=== PATIENT | male | born 1970 | race Caucasian/White ===

== ENCOUNTER 2017-07-26 07:27 | Emergency (ER) | payer OTHER ==
[2017-07-26 07:36] VITALS: BP 124/82
--- NOTE | 2017-07-26 07:44 | UC ---
Upper Extremity HPI - HPI Summary HPI Summary: Fall from porch last night on to left wrist. Foosh injury. There is swelling and pain today. It is painful to move the wrist. - History of Current Complaint Chief Complaint: UCUpperExtremity Stated Complaint: LFT WRIST INJURY-SP FALL Time Seen by Provider: 07/26/17 07:40 Hx Obtained From: Patient Onset/Duration: Sudden Onset, Lasting Hours Severity Initially: Severe Severity Currently: Severe Location Of Pain: Is Discrete @ Character: Dull, Aching, Throbbing Aggravating Factor(s): Movement, Lifting, Flexion, Extension, Internal/External Rotation, Abduction Alleviating Factor(s): OTC Meds Associated Signs And Symptoms: Positive: Swelling. Negative: Redness, Numbness/ Tingling - Allergies/Home Medications Allergies/Adverse Reactions: Allergies Allergy/AdvReac Type Severity Reaction Status Date / Time No Known Allergies Allergy Verified 07/26/17 07:35 Home Medications: Home Medications NK [No Home Medications Reported] 07/26/17 [History Confirmed 07/26/17] PMH/Surg Hx/FS Hx/Imm Hx Previously Healthy: Yes - Surgical History Surgical History: None - Family History Known Family History: Positive: Other - No related wrist disease in the family. - Social History Occupation: Employed Full-time Alcohol Use: Occasionally Substance Use Type: None Smoking Status (MU): Never Smoked Tobacco Review of Systems Musculoskeletal: Arthralgia, Edema All Other Systems Reviewed And Are Negative: Yes Physical Exam Triage Information Reviewed: Yes Appearance: Well-Appearing, No Pain Distress, Well-Nourished Vital Signs: Initial Vital Signs Temp 98.2 F 07/26/17 07:30 Pulse 86 07/26/17 07:30 Resp 16 07/26/17 07:30 BP 124/82 07/26/17 07:30 Pulse Ox 100 07/26/17 07:30 Vital Signs Reviewed: Yes Eyes: Positive: Conjunctiva Clear ENT: Positive: Normal ENT inspection Neck: Positive: Supple, Nontender. Negative: Nuchal Rigidity Respiratory: Positive: No respiratory distress, No accessory muscle use. Negative: Respiratory distress Cardiovascular: Positive: Pulses Normal Abdomen Description: Negative: Distended, Guarding Musculoskeletal Exam: Other - Left wrist posterior swelling without redness. There is tenderness of the carpal bones without tenderness of the fingers, metacarpals and distal radius and ulna. Neurological: Positive: Alert, Muscle Tone Normal. Negative: Fatigued Psychological: Positive: Age Appropriate Behavior Skin: Negative: rashes Procedures - Splinting Hand-Made Type: orthoglass Splint: sugar-tong Pre-Proc Neuro Vasc Exam: normal Post-Proc Neuro Vasc Exam: normal Upper Extremity Course/Dx - Differential Dx/Diagnosis Differential Diagnosis/HQI/PQRI: Arthritis, Burn, Bursitis, Contusion, Fracture (Open), Fracture (Closed), Hematoma, Laceration, Localized Burn, Osteomyelitis, Septic Arthritis, Strain, Sprain Provider Diagnoses: distal radius fractures. Discharge - Discharge Plan Condition: Good Disposition: HOME Patient Education Materials: Wrist Fracture in Adults (ED) Referrals: Gagan Brush DO [Primary Care Provider] - Vinny Nguyen MD [Medical Doctor] -
--- NOTE | 2017-07-26 08:16 | RAD ---
HISTORY: Left wrist pain, injury COMPARISONS: None VIEWS: 3, Frontal, lateral, and oblique views of the left wrist FINDINGS: BONE DENSITY: Normal. BONES: There is a minimally displaced fracture of the dorsolateral radius, involving the radial styloid. JOINTS: There is no arthropathy. ALIGNMENT: There is no dislocation. SOFT TISSUES: There is associated soft tissue swelling OTHER FINDINGS: None. IMPRESSION: MINIMALLY DISPLACED FRACTURE OF THE DISTAL RADIUS.
== END 2017-07-26 09:11 | disposition home or self-care (01) ==
LOC: UCCORT 07:27
DX: S52.502A Unspecified fracture of the lower end of left radius, initial encounter for closed fracture (principal); W19.XXXA Unspecified fall, initial encounter; Y92.9 Unspecified place or not applicable
CPT/HCPCS: 25605; 99202; G0463

== ENCOUNTER 2017-07-26 12:27 | Observation (INO) | payer OTHER ==
--- NOTE | 2017-07-26 13:48 | ED ---
Upper Extremity Pain - HPI Summary HPI Summary: 46M presents with left radius fracture from ortho in [place]. He has radius fracture. was sent in by ortho. 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 no numbness or tingling. splint placed by urgent care. was walking on wet deck and slipped and arm went behind him. last ate last night. no medical conditions. - History of Current Complaint Chief Complaint: EDExtremityUpper Stated Complaint: LEFT ARM PAIN Time Seen by Provider: 07/26/17 13:39 - Allergies/Home Medications Allergies/Adverse Reactions: Allergies Allergy/AdvReac Type Severity Reaction Status Date / Time No Known Allergies Allergy Verified 07/26/17 07:35 PMH/Surg Hx/FS Hx/Imm Hx Endocrine/Hematology History: Denies: Hx Anticoagulant Therapy Cardiovascular History: Denies: Hx Myocardial Infarction - Immunization History Date of Tetanus Vaccine: unknown Date of Influenza Vaccine: 05/2017 Infectious Disease History: No Infectious Disease History: Denies: Traveled Outside the [place] in Last 30 Days - Family History Known Family History: Positive: Other - No related wrist disease in the family. - Social History Alcohol Use: Occasionally Substance Use Type: Reports: None Smoking Status (MU): Never Smoked Tobacco Review of Systems Negative: Fever Negative: Chest Pain Negative: Shortness Of Breath Positive: Myalgia - left wrist pain All Other Systems Reviewed And Are Negative: Yes Physical Exam Triage Information Reviewed: Yes Vital Signs On Initial Exam: Initial Vitals Temp Pulse Resp BP Pulse Ox 97.9 F 93 18 179/117 97 07/26/17 12:31 07/26/17 12:31 07/26/17 12:31 07/26/17 12:31 07/26/17 12:31 Vital Signs Reviewed: Yes Appearance: Positive: Well-Appearing Skin: Positive: Warm, Dry Head/Face: Positive: Normal Head/Face Inspection Eyes: Positive: Normal, Conjunctiva Clear Respiratory/Lung Sounds: Positive: Clear to Auscultation, Breath Sounds Present Cardiovascular: Positive: Normal, RRR Musculoskeletal: Positive: Other - splint in place on left forearm, able to move finger, sensation grossly intact, capillary refill<2 secs Neurological: Positive: Normal Psychiatric: Positive: Normal - Tranquillity Coma Scale Coma Scale Total: 15 Diagnostics - Vital Signs Vital Signs Temp Pulse Resp BP Pulse Ox 07/26/17 12:31 97.9 F 93 18 179/117 97 - Laboratory Result Diagrams: 07/26/17 20:50 07/26/17 20:50 Lab Statement: Any lab studies that have been ordered have been reviewed, and results considered in the medical decision making process. - EKG No standard instances Cardiac Rate: NL EKG Rhythm: Sinus Rhythm EKG Interpretation: sinus rhythm Course/Dx - Course Course Of Treatment: 46M presents with left radius fracture from ortho in [place]. He has radius fracture. was sent in by ortho. 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 no numbness or tingling. splint placed by urgent care. was walking on wet deck and slipped and arm went behind him. last ate last night. no medical conditions. on exam neurovascular intact. splint in place left arm. dr gruber will come in see in ED. dr gruber attempted to reduce wrist. dr gruber will admit for surgery in morning. - Diagnoses Differential Diagnosis/HQI/PQRI: Positive: Fracture (Closed), Strain, Sprain Provider Diagnoses: Left wrist fracture - Physician Notifications Discussed Care of Patient With: dr gruber Time Discussed With Above Provider: 15:10 - will see in ED after or case Discharge - Discharge Plan Condition: Stable Disposition: ADMITTED TO [facility]
[2017-07-26] MEDS ORDERED: oxyCODONE/Acetamin 5/325 MG* TAB PO ONE (17:13)
[2017-07-26] MEDS ORDERED: Ibuprofen TAB* 400 MG PO ONE (17:13)
[2017-07-26] MEDS ORDERED: Lidocaine 2% EPI 1:200000 MPF* 20 ML VIAL ONE (18:10)
--- NOTE | 2017-07-26 19:32 | RAD ---
INDICATION: Postreduction COMPARISON: Left wrist same date TECHNIQUE: AP, lateral, and oblique views were obtained. FINDINGS: There is anterior dislocation of the lunate, unchanged. There is fracture the radial styloid and there may be a small fracture fragment are composed between the triquetral bone and the lunate. The distal carpal row appears intact. There is diffuse soft tissue swelling. IMPRESSION: CYST IN THE LOWER DISLOCATION OF THE LUNATE. FRACTURES OF THE RADIAL STYLOID AND POSSIBLE TRIQUETRAL FRACTURE. CONSIDER CT IMAGING INDICATED.
--- NOTE | 2017-07-26 19:52 | RAD ---
INDICATION: Postreduction x2 COMPARISON: Left wrist same date TECHNIQUE: AP, lateral, and oblique views were obtained. FINDINGS: There is interval closed closed reduction of the lunate. Radial styloid and probable triquetral fractures are again noted. No additional findings. IMPRESSION: SATISFACTORY REDUCTION.
[2017-07-26] MEDS ORDERED: Morphine INJ* 2 MG/ML 1 ML SYRINGE (TWO MG - NEW SYRINGE VERSION) IV PRN (20:11)
[2017-07-26] MEDS ORDERED: Ondansetron TAB* 4 MG PO PRN (20:11)
[2017-07-26] MEDS ORDERED: oxyCODONE/Acetamin 5/325 MG* TAB PO PRN (20:11)
[2017-07-26] MEDS ORDERED: diPHENhydraMINE PO* 25 MG PO PRN (20:11)
[2017-07-26] MEDS ORDERED: Acetaminophen TAB* 325 MG PO PRN (20:11)
[2017-07-26 20:56] LABS: Hematocrit 48 % (42-52); Hemoglobin 16.2 g/dl (14.0-18.0); Mean Corpuscular HGB Conc 34 g/dl (31-36); Mean Corpuscular Hemoglobin 31 pg (27-31); Mean Corpuscular Volume 91 fL (80-94); Mean Platelet Volume 9 um3 (7.4-10.4); Platelet Count 221 10^3/ul (150-450); Red Blood Count 5.26 10^6/ul (4.0-5.4); Red Cell Distribution Width 14 % (10.5-15); White Blood Count 11.8 10^3/ul (3.5-10.8)
[2017-07-26 21:05] LABS: INR 1.04 (0.77-1.02)
[2017-07-26 21:41] LABS: EGFR Non-African American 88.3 (>60)
--- NOTE | 2017-07-27 02:44 | HP ---
HISTORY AND PHYSICAL: DATE OF ADMISSION: 07/26/17 REASON FOR ADMISSION: Left wrist perilunate dislocation. 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 The patient states that he slipped at home and fell on his wrist. He assumed it was just a sprain. He wrapped it with an Hira bandage overnight. He awoke this morning in significant pain and realized that he should seek medical care. He saw Dr. Vinny Nguyen at his clinic at [place]. Radiographs were obtained and demonstrated a left wrist perilunate dislocation. Dr. Nguyen placed the patient in a volar splint. Reduction was not attempted in the office. Dr. Nguyen contacted Dr. Graham, my partner, by telephone and gave him some notice of the injury. Dr. Nguyen sent the patient to the Emergency Department at [facility]. The patient presented to the emergency department in some discomfort. The patient denied any other injuries or pain associated with the fall. PAST MEDICAL HISTORY: None. PAST SURGICAL HISTORY: None. MEDICATIONS: None. ALLERGIES: No known drug allergies. REVIEW OF SYSTEMS: The patient denies any headache, nausea or vomiting, chest pain, shortness of breath, heart palpitations. No nausea, vomiting, abdominal pain, diarrhea. The patient describes transient numbness and tingling when he walked around to go to the bathroom while in the emergency department. Otherwise, no numbness and tingling whatsoever. No other joint pain. No other musculoskeletal pain about his body. PHYSICAL EXAMINATION GENERAL: In no acute distress. Alert and oriented, appropriate mood and affect. Appropriate dress and hygiene, non-antalgic gait. Well coordinated bilateral upper and lower extremities. VITAL SIGNS: Obtained at 12:31 p.m. on 07/26/17 in the emergency department revealed temperature 97.9 degrees Fahrenheit, heart rate 93, blood pressure 179/ 117, respiratory 18, O2 sat 97% on room air. EXTREMITIES: Left upper extremity was removed from the volar splint. The patient had soft tissue swelling about the left wrist. No ecchymosis. No open skin. The patient was neurovascular intact distally with motor function in PIN and ulnar nerves and sensation intact in the superficial radial, median and ulnar nerve distributions. Tenderness to palpation of the wrist volarly and dorsally. LABORATORY VALUES: None obtained. IMAGING: I reviewed radiographs, 3 views of the left wrist obtained earlier in the day. These showed a dorsal left wrist perilunate dislocation. It involves the lesser arc, mostly ligamentous although there was clearly a radial styloid fracture. There was also a question of a rosio fracture of the dorsal aspect of the styloid and of the trapezium bones. ASSESSMENT: Left wrist dorsal perilunate dislocation. PLAN: 1. I discussed with the patient the treatment he needs immediately and also in the short term. Immediately, the patient needed his wrist relocated. This is to reduce soft tissue swelling and to reduce harm to the articular cartilage or the carpal bones. In the short term, the patient will need pinning of his carpal bones and repair of intercarpal ligaments. 2. I discussed relocating the wrist in the emergency department or in the operating room. We decided to proceed with a relocation in the emergency department. 3. Procedure: I performed a relocation of the patient's left wrist dislocation in the emergency department. Verbal consent, sterile technique, tolerated well. I injected 10 cc of 2% lidocaine into the dorsal aspect of the patient's wrist. Difficult to tell whether I was in the radiocarpal or intercarpal joints given the significance of his swelling and the tenderness with determining landmarks. I believe I was in the radiocarpal joint. I then waited 15 minutes. I placed the patient in finger traps. I then performed a reduction maneuver. I sent the patient to get x-rays. These x-rays show that the patient was still dislocated. I therefore performed the relocation maneuver again. I sent the patient back for x-rays. These x-rays show the patient's wrist to be located. The dorsal perilunate dislocation had been resolved. The wrist was well located. Fracture is visible of the radiostyloid tip and the dorsal aspect of the radius, dorsal rim and possibly of triquetrum. 4. I admitted the patient overnight for pain control. The patient was in significant pain and so I thought IV pain control would be required. Nursing will do standard bed checks on the patient. 5. I placed the patient back into a volar wrist splint. 6. The patient will be n.p.o. after midnight with IV fluids running. 7. I will get an EKG and some basic labs on the patient for preoperative optimization. 8. The patient will go to the operating room tomorrow with Dr. Graham for an open reduction ligament repair and percutaneous pinning of the perilunate fracture dislocation. More accurately perilunate dislocation. [id number]/[facility] #: [id number] [place]
[2017-07-27] MEDS: NS 0.9% 1000 ML* 1,000 ML IV SCH (07:56)
[2017-07-27] MEDS: hydrALAZINE IV* 20 MG/ML VIAL IV SLOW PU PRN ×3 (12:57→23:56)
--- NOTE | 2017-07-27 13:21 | PN ---
Progress Note - Progress Note Date of Service: 07/27/17 SOAP: Subjective: []Patient seen at bedside. His pain is well controlled with a max of 3/10 pain. His blood pressure has been elevated since admission, patient states he has no history of hypertension but does have occasional high readings when at PCP that decrease by the end of the visit. He denies chest pain, irregular heartbeats, shortness of breath, dizziness or nausea. Objective: [] Vital Signs Temp 97.5 F 07/27/17 12:05 Pulse 65 07/27/17 11:17 Resp 18 07/27/17 12:18 BP 179/106 07/27/17 12:48 Pulse Ox 100 07/27/17 11:17 Intake & Output 07/26/17 07/27/17 07/27/17 18:59 06:59 18:59 Intake Total 686 Balance 686 Weight 300 lb 309 lb Intake: IV Fluids 686 NS (0.9%) 686 Oral 0 Other: Estimated Void Medium Medium Other Amount Description 0 # Voids 2 Laboratory Last Values WBC 11.8 10^3/ul (3.5-10.8) H 07/26/17 20:50 RBC 5.26 10^6/ul (4.0-5.4) 07/26/17 20:50 Hgb 16.2 g/dl (14.0-18.0) 07/26/17 20:50 Hct 48 % (42-52) 07/26/17 20:50 MCV 91 fL (80-94) 07/26/17 20:50 MCH 31 pg (27-31) 07/26/17 20:50 MCHC 34 g/dl (31-36) 07/26/17 20:50 RDW 14 % (10.5-15) 07/26/17 20:50 Plt Count 221 10^3/ul (150-450) 07/26/17 20:50 MPV 9 um3 (7.4-10.4) 07/26/17 20:50 INR (Anticoag Therapy) 1.04 (0.77-1.02) H 07/26/17 20:50 Sodium 137 mmol/L (133-145) 07/26/17 20:50 Potassium 4.3 mmol/L (3.5-5.0) 07/26/17 20:50 Chloride 103 mmol/L (101-111) 07/26/17 20:50 Carbon Dioxide 25 mmol/L (22-32) 07/26/17 20:50 Anion Gap 9 mmol/L (2-11) 07/26/17 20:50 BUN 18 mg/dL (6-24) 07/26/17 20:50 Creatinine 0.93 mg/dL (0.67-1.17) 07/26/17 20:50 Est GFR ( Amer) 113.5 (>60) 07/26/17 20:50 Est GFR (Non-Af Amer) 88.3 (>60) 07/26/17 20:50 BUN/Creatinine Ratio 19.4 (8-20) 07/26/17 20:50 Glucose 118 mg/dL (70-100) H 07/26/17 20:50 Calcium 9.9 mg/dL (8.6-10.3) 07/26/17 20:50 General: Well appearing, NAD. Calm and cooperative. Patient does not appear to be anxious or in pain. LUE: Splint intact. Sensation intact of all 5 digits, flexion and extension intact of all 5 digits, brisk capillary refill distally. Assessment: []Left wrist dorsal perilunate dislocation Plan: []Pain control did not reduce BP adequately. Hospitalist consulted to oversee blood pressure control. Hydralazine ordered for perioperative BP control. Patient to be discharged on HCTZ 12.5 mg qd. NPO ORIF ligament repair and percutaneous pinning today
[2017-07-27] MEDS ORDERED: Metoprolol Tartrate IV* 1 MG/ML 5 ML VIAL ONE (14:16)
[2017-07-27] MEDS: Metoprolol Tartrate IV* 1 MG/ML 5 ML VIAL IV PRN (14:20)
[2017-07-27] MEDS ORDERED: hydrALAZINE IV* 20 MG/ML VIAL IV SLOW PU ONE (14:21)
--- NOTE | 2017-07-27 16:21 | CONS ---
[facility] MEDICINE CONSULTATION REPORT: DATE OF CONSULT: 07/27/17 PROVIDER: Valerie Flores NP ATTENDING PHYSICIAN: Dr. Costa Berg. CONSULTING PHYSICIAN: Dr. Shantel Pink (dictation is provided by Valerie Flores NP). REASON FOR CONSULT: Hypertension. HISTORY OF PRESENT ILLNESS: Mr. Fallon is a 46-year-old male that presented to the emergency room on 07/26/17 after he slipped and fell injuring his left wrist on 07/25/17. The patient states that he slipped on his porch at home. He assumed that he just sprained his wrist, so he wrapped it and then the next morning, his wrist had increased pain. So, he went to seek medical care. He saw Dr. Vinny Nguyen at the clinic in [place]. X-rays were obtained and demonstrated left wrist perilunate dislocation. He was then sent to the emergency room at [facility] for further management. The patient is currently sitting on the chair in his room. He has no complaints. He denies any recent illnesses. Denies nausea, vomiting, or diarrhea. Denies abdominal pain. Denies fever or chills. Denies any recent upper respiratory cough, cold , or congestion. He denies any history of coronary artery disease, COPD, asthma , or recent lung infections. He is scheduled for surgery on his left wrist today. We were asked to consult on this patient due to his high blood pressures overnight. PAST MEDICAL HISTORY: He has no past medical history. PAST SURGICAL HISTORY: He has no past surgical history. MEDICATIONS: No medications as an outpatient. ALLERGIES: No known allergies. FAMILY HISTORY: No history of coronary artery disease in the family. Diabetes , mother has diabetes diagnosed at age 40. Cancer, mother had breast cancer. SOCIAL HISTORY: The patient denies the use of tobacco or drug use. He does occasionally drink alcohol. 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 He is . His surrogate decision maker in the event he is unable to make his own decisions is his , Bisi Fallon. Her phone number is [phone]. REVIEW OF SYSTEMS: General: No fever, chills, or unintended weight loss. He does report that he has had some weight gain over the past year. Cardiac: No chest pain or edema. Respiratory: No cough or congestion. Denies any shortness of breath. GI: Denies nausea, vomiting, or diarrhea. Denies abdominal pain. : Denies gross hematuria. Denies dysuria. Neuro: No focal weakness or sensory loss. No visual complaints. ENT: No dysphagia. Musculoskeletal: No arthralgias or myalgias. Skin: No rashes or lesions. Psych: No depression or anxiety. PHYSICAL EXAM: Vital Signs: Temperature is 97.5, blood pressure was 159/93, heart rate is 65, respirations are 16, O2 is 100% on room air. He has had systolic blood pressures between 161-179/100-127. General: Mr. Fallon is a 46- year-old male. He is sitting up in a chair. He is in no acute distress. Neuro : He is alert and oriented x3. He is able to move all extremities. He does complain of mild pain to his left wrist, rated at 1. EOMs are intact. Heart: S1, S2. There are no murmurs, rubs, or gallops. Lungs are clear to auscultation bilaterally. No accessory muscle use. Abdomen is soft and nontender. Bowel sounds are active x4. Extremities: No cyanosis or clubbing. There is no edema. Skin is intact. He does have a splint to his left wrist. He is able to move all of his fingers. DIAGNOSTIC STUDIES/LAB DATA: Preoperatively from 07/26/17, WBC is 11.8, hemoglobin 16.2, hematocrit 48, platelet count is 221. INR is 1.04. Sodium 137 , potassium 4.3, chloride 103, carbon dioxide 25, BUN 18, creatinine 0.93, glucose 118, and calcium is 9.9. EKG shows a sinus rhythm. There is no ST or T wave changes. Left wrist x-ray, Radiology impression: Cyst in the lower dislocation of the lunate, fracture of the radial styloid and possible triquetral fracture. Consider CT imaging if indicated. Second wrist x-ray from 07/26/17 states satisfactory reduction. In this x-ray, an interval closed reduction of the lunate, radial styloid and palpable triquetral fractures are again noted, no additional findings. IMPRESSION AND PLAN: Mr. Fallon is a 46-year-old male that presented with no significant past medical history, who presented to the emergency room yesterday with a left wrist dislocation and fracture, who was scheduled for surgery today. In the immediate preoperative period, he had some hypertension overnight that was uncontrolled with systolic blood pressure between 159 and 179 over 93 to 127. We were asked to consult for management of his hypertension. Our recommendations are as follows: 1. Left wrist fracture. Management will be per Orthopedic Surgery. 2. Hypertension. I will order a p.r.n. dose of hydralazine 5 mg IV q.6 hours as needed for systolic blood pressure greater than 170. I would also recommend that he be started postoperatively on a low dose blood pressure medication. I would recommend hydrochlorothiazide 12.5 mg p.o. dailyat discharge if his blood pressure remains high. From a medical standpoint, he is okay for surgery. 3. DVT prophylaxis, per Orthopedic Surgery. 4. Full code. 5. Diet. Postoperatively, he can be placed on a regular diet. TIME SPENT: Approximately 45 minutes was spent on this consultation of this patient, more than half the time was spent with the patient and his at the bedside, reviewing the events leading to his hospitalization, performing physical exam, and reviewing my plan of care. I have reviewed my plan of care with, Dr. Shantel Pink, who is in agreement with my plan of care. VALERIE FLORES, [place] [id number]/[facility] #: [id number] [place]
[2017-07-27] MEDS ORDERED: Buffered Lidocaine 0.9% SYRIN* 5 ML/SYR SYRINGE ONE (16:39)
[2017-07-27] MEDS ORDERED: ceFAZolin 2 GM PREMIX (*) 2 GM/50 ML BAG IVPB ONE (19:04)
[2017-07-27] MEDS ORDERED: ceFAZolin 1 GM in Dextrose (*) 1 GM/50 ML BAG IVPB ONE (19:04)
[2017-07-27] MEDS ORDERED: Midazolam* 1 MG/ML 10 ML VIAL (10 MG) ONE (19:44)
[2017-07-27] MEDS ORDERED: Ondansetron INJ* 2 MG/ML VIAL ONE (19:44)
[2017-07-27] MEDS ORDERED: KETAMINE HCL* 50 MG/ML 10 ML VIAL ONE (19:44)
[2017-07-27] MEDS ORDERED: fentaNYL* 50 MCG/ML 5 ML VIAL (250 MCG VIAL) ONE (19:44)
[2017-07-27] MEDS ORDERED: Lidocaine 2% PF * 5 ML VIAL ONE (19:44)
[2017-07-27] MEDS ORDERED: Dexamethasone IV* 4 MG/ML 1 ML (4 MG) ONE (19:44)
[2017-07-27] MEDS ORDERED: Propofol* 10 MG/ML 20 ML BTL IV PUSH ONE (19:44)
[2017-07-27] MEDS ORDERED: Ketorolac INJ* 30 MG/ML 1 ML VIAL ONE (19:44)
--- NOTE | 2017-07-27 20:00 | PN ---
Progress Note - Progress Note Date of Service: 07/27/17 Note: I have met with Kieran and have reviewed his case. We will plan on left perilunate dislocation repair and possible carpal tunnel release. He understands the postoperative course and prolonged immobilization and need for subsequent pin removal. He understands the wrist will likely be stiff.
[2017-07-27] MEDS ORDERED: fentaNYL* 50 MCG/ML 2 ML VIAL (100 MCG VIAL) ONE ×2 (21:41→22:53)
[2017-07-27] MEDS ORDERED: fentaNYL* 50 MCG/ML 2 ML VIAL (100 MCG VIAL) IV PRN (21:58)
[2017-07-27] MEDS ORDERED: Ondansetron INJ* 2 MG/ML VIAL IV PRN (21:58)
[2017-07-27] MEDS ORDERED: HYDROmorphone INJ* 1 MG/ML CARPUJECT SYRINGE IV PRN (21:58)
[2017-07-27] MEDS ORDERED: HYDROmorphone INJ* 1 MG/ML CARPUJECT SYRINGE ONE (22:12)
[2017-07-27] MEDS ORDERED: Bupivacaine 0.5% SDV PF* 10-30ML VIAL ONE (22:35)
[2017-07-27] MEDS ORDERED: hydrALAZINE IV* 20 MG/ML VIAL ONE (23:53)
[2017-07-28] MEDS ORDERED: Metoprolol Tartrate IV* 1 MG/ML 5 ML VIAL ONE (00:28)
[2017-07-28] MEDS: Metoprolol Tartrate IV* 1 MG/ML 5 ML VIAL IV PRN (00:29)
[2017-07-28] MEDS ORDERED: Labetalol IV* 5 MG/ML 20 ML VIAL ONE (01:04)
[2017-07-28] MEDS: NS 0.9% 1000 ML* 1,000 ML IV SCH (02:37)
[2017-07-28] MEDS ORDERED: ceFAZolin 1 GM VIAL(*) 1 GM in D5W 50 ML BAG* 50 ML IVPB SCH (04:00)
--- NOTE | 2017-07-28 07:48 | RAD ---
INDICATION: Left wrist fracture, fall COMPARISONS: July 27, 2017 TECHNIQUE: Fluoroscopy was provided for a surgical procedure. Total fluoroscopy time is: 46.2 FINDINGS: Spot images demonstrate previous fixation of the proximal and distal carpal row with post surgical change to the lunate.. IMPRESSION: FLUOROSCOPY WAS PROVIDED FOR A SURGICAL PROCEDURE CPT II Codes: 6045F
[2017-07-28 08:18] VITALS: BP 137/73
[2017-07-28] MEDS ORDERED: Hydrochlorothiazide TAB* 25 MG PO SCH (09:00)
--- NOTE | 2017-07-28 10:18 | PN ---
Progress Note - Progress Note Date of Service: 07/28/17 SOAP: Subjective: 46 y/o male s/p L wrist perilunate dislocation s/p reduction, pinning [address] Graham. Patient overall feeling well, pain controlled with Percocet overnight. no questions/ concerns. at bedside. VSS afebrile Objective: General- Well appearing, NAD, ao MSK- SPlint intact, no drainage noted, SITLT L fingers, cap refill <2seconds, mild edema L fingers. Vital Signs Temp 97.9 F 07/28/17 08:08 Pulse 91 07/28/17 08:08 Resp 18 07/28/17 08:08 BP 137/73 07/28/17 08:08 Pulse Ox 96 07/28/17 08:08 Intake & Output 07/27/17 07/28/17 07/28/17 18:59 06:59 18:59 Intake Total 948 2150 Balance 948 2150 Intake: IV Fluids 948 2150 LR 2000 NS (0.9%) 948 NS 50ML, Cefazolin 1G 50 NS 50ML, Cefazolin 2G 50 Oral 0 Other: Estimated Void Medium Large # Voids 4 1 Assessment: Stable 46 y/o male s/p L wrist perilunate dislocation s/p reduction, pinning by DR. Graham. Plan: - D/C to home today - Follow up [facility] DR. graham 08/08 or 08/15 in [place] - Keep splint elevated, dry - Percocet for pain control - BP normalized without medication in past 12 hours, likely due to pain. Follow up with PCP. Active Medications Generic Name Dose Route Start Last Admin Trade Name Freq PRN Reason Stop Dose Admin Acetaminophen 325 mg 07/26/17 20:11 Tylenol Tab* PO Q6H PRN PAIN OR TEMPERATURE Diphenhydramine HCl 25 mg 07/26/17 20:11 Benadryl Po* PO Q6H PRN ITCHING Hydralazine HCl 5 mg 07/27/17 12:37 07/27/17 23:56 Apresoline Iv* IV SLOW PU 5 mg Q6H PRN Administration SYSTOLIC BP GREATER THAN: Hydrochlorothiazide 12.5 mg 07/28/17 09:00 07/28/17 10:08 Hydrodiuril Tab* PO Not Given DAILY BRYAN Sodium Chloride 1,000 mls @ 100 mls/hr 07/26/17 20:15 07/28/17 02:37 Ns 0.9% 1000 Ml* IV 100 mls/hr PER RATE BRYAN Administration Cefazolin Sodium 1 gm/ 50 mls @ 200 mls/hr 07/28/17 04:00 07/28/17 04:19 Dextrose IVPB 07/28/17 20:14 200 mls/hr Q8H BRYAN Administration Metoprolol Tartrate 5 mg 07/27/17 14:09 07/28/17 00:29 Lopressor Iv* IV 5 mg Q4H PRN Administration BLOOD PRESSURE Morphine Sulfate 2 mg 07/26/17 20:11 Morphine Inj (Syringe)* IV Q2H PRN PAIN - MODERATE Ondansetron HCl 4 mg 07/26/17 20:11 Zofran Tab* PO Q6H PRN NAUSEA Oxycodone/Acetaminophen 1 tab 07/26/17 20:11 07/27/17 09:04 Percocet 5/325 Tab* PO 1 tab Q4H PRN Administration PAIN
--- NOTE | 2017-07-28 10:29 | PN ---
Subjective Date of Service: 07/28/17 Interval History: Pt is feeling well. Pain is controlled. He has never been diagnosed with HTN in the past. He follows with Dr. You. He is anxious to go home. Objective Active Medications: Acetaminophen (Tylenol Tab*) 325 mg PO Q6H PRN PRN Reason: PAIN OR TEMPERATURE Diphenhydramine HCl (Benadryl Po*) 25 mg PO Q6H PRN PRN Reason: ITCHING Hydralazine HCl (Apresoline Iv*) 5 mg IV SLOW PU Q6H PRN PRN Reason: SYSTOLIC BP GREATER THAN: Last Admin: 07/27/17 23:56 Dose: 5 mg Hydrochlorothiazide (Hydrodiuril Tab*) 12.5 mg PO DAILY [facility] Last Admin: 07/28/17 10:08 Dose: Not Given Sodium Chloride (Ns 0.9% 1000 Ml*) 1,000 mls @ 100 mls/hr IV PER RATE [facility] Last Admin: 07/28/17 02:37 Dose: 100 mls/hr Cefazolin Sodium 1 gm/ (Dextrose) 50 mls @ 200 mls/hr IVPB Q8H [facility] Stop: 07/28/17 20:14 Last Admin: 07/28/17 04:19 Dose: 200 mls/hr Metoprolol Tartrate (Lopressor Iv*) 5 mg IV Q4H PRN PRN Reason: BLOOD PRESSURE Last Admin: 07/28/17 00:29 Dose: 5 mg Morphine Sulfate (Morphine Inj (Syringe)*) 2 mg IV Q2H PRN PRN Reason: PAIN - MODERATE Ondansetron HCl (Zofran Tab*) 4 mg PO Q6H PRN PRN Reason: NAUSEA Oxycodone/Acetaminophen (Percocet 5/325 Tab*) 1 tab PO Q4H PRN PRN Reason: PAIN Last Admin: 07/27/17 09:04 Dose: 1 tab Vital Signs - 8 hr 07/28/17 07/28/17 07/28/17 03:19 04:00 04:26 Temperature 98.2 F 98.2 F Pulse Rate 96 91 Respiratory 16 16 16 Rate Blood Pressure 108/44 119/52 (mmHg) O2 Sat by Pulse 96 97 97 Oximetry 07/28/17 07/28/17 07/28/17 05:18 06:00 06:20 Temperature 98.0 F 98.1 F Pulse Rate 86 86 Respiratory 16 16 16 Rate Blood Pressure 120/60 129/54 (mmHg) O2 Sat by Pulse 95 98 94 Oximetry 07/28/17 07/28/17 08:00 08:08 Temperature 97.9 F Pulse Rate 91 Respiratory 18 18 Rate Blood Pressure 137/73 (mmHg) O2 Sat by Pulse 96 96 Oximetry Oxygen Devices in Use Now: Nasal Cannula Appearance: Middle aged male sitting up in bed, NAD Eyes: No Scleral Icterus Ears/Nose/Mouth/Throat: Mucous Membranes Moist Respiratory: Symmetrical Chest Expansion and Respiratory Effort, Clear to Auscultation Cardiovascular: NL Sounds; No Murmurs; No JVD, RRR, No Edema Abdominal: NL Sounds; No Tenderness; No Distention Extremities: No Clubbing, Cyanosis, - - L forearm in cast Skin: No Rash or Ulcers, No Nodules or Sclerosis Neurological: Alert and Oriented x 3 Result Diagrams: 07/26/17 20:50 07/26/17 20:50 Assess/Plan/Problems-Billing Mr Fallon is a 46 yo M who was admitted for a L wrist fracture after sustaining a mechanical fall and was found to be markedly hypertensive prompting a hospitalist consult. - Patient Problems (1) Left wrist fracture Current Visit: Yes Status: Acute Code(s): S62.102A - FRACTURE OF UNSP CARPAL BONE, LEFT WRIST, INIT FOR CLOS FX SNOMED Code(s): 753256100 Comment: Management per orthopedics. (2) HTN (hypertension) Current Visit: Yes Status: Acute Code(s): I10 - ESSENTIAL (PRIMARY) HYPERTENSION SNOMED Code(s): 41045449 Comment: BP has normalized this AM without any BP medications. Will d/c pt home without an antihypertensive and follow up with Dr. You as an outpatient in 7-10 days. I suspect the hypertension seen earlier this hospitalization was secondary to pain and anxiety. (3) DVT prophylaxis Current Visit: Yes Status: Acute Code(s): YGZ4432 - SNOMED Code(s): 953415599 Comment: SCDs (4) Full code status Current Visit: Yes Status: Acute Code(s): Z78.9 - OTHER SPECIFIED HEALTH STATUS SNOMED Code(s): 067503041
--- NOTE | 2017-07-28 11:30 | OP ---
OPERATIVE REPORT: DATE OF OPERATION: 07/27/17 DATE OF : 74 SURGEON: Shaw Graham MD HUMAN RESOURCES CLERK: ANA MARIA Montejo An data control assistant was needed for the procedure to aid in positioning of the arm and retraction. ANESTHESIOLOGIST: Dr. Ferris. ANESTHESIA: General. PRE-OP DIAGNOSIS: Left transradial styloid perilunate fracture dislocation. POST-OP DIAGNOSIS: Left transradial styloid perilunate fracture dislocation. OPERATIVE PROCEDURE: 1. Repair of left wrist perilunate fracture dislocation with scapholunate and lunotriquetral ligament repairs and pinning. 2. Left wrist posterior interosseous nerve neurectomy. INDICATIONS: Kieran had the injury yesterday. He was close reduced by my partner in the emergency room. We kept him overnight and planned for surgery today. He understands this is a significant injury. He understands there is a risk of early arthritis. Despite surgery, there is a risk of posttraumatic arthrosis, there is a risk of stiffness and chronic pain and need for further surgery. He understands that there will be prolonged postoperative immobilization in a cast. He wanted to proceed with surgery. ESTIMATED BLOOD LOSS: 5 mL. COMPLICATIONS: None. FINDINGS: As expected. DESCRIPTION OF PROCEDURE: Kieran was seen in the preoperative holding area. The correct side, site, and procedure were identified. We had time-out. We came back to the operating room. The arm was prepped and draped in the usual fashion. A time-out was performed. I began by exsanguinating the arm with the Esmarch and the tourniquet was inflated to 250 mmHg. Longitudinal incision was made over the dorsal wrist. Dissection was carried down to the extensor retinaculum. Full-thickness flaps were raised radially and laterally. The third dorsal compartment was opened. I then split the capsule longitudinally to expose the scapholunate interosseous ligament, which was torn off the lunate. I then doug'd the capsule back at the radiocarpal joint to expose the remainder of the lunate and the lunotriquetral joint. The dorsal lunotriquetral ligament had in similar fashion come off the lunate and essentially it was a bald lunate dorsally. There was quite a bit of malalignment and stepoff. The wrist had stayed reduced. At this point, I went ahead and irrigated and got everything cleaned up. I place 2 mini Mitek suture anchors in the dorsal aspect of the lunate on the radial aspect and then 2 more on the ulnar aspect of the lunate dorsally. Again, these were mini Mitek suture anchors. I had flexed the lunate down and brought it out of the extension deformity and then placed a dorsal blocking pin to hold it in the neutral position. I then placed a 0.045 K-wire in the scaphoid. I brought the wires together to reduce the scapholunate joint. I then placed a 0.045 K-wire across the scaphoid down into the lunate to hold the reduction. I placed a second K-wire. I then tied the 2 sets of mini Mitek sutures in mattress type fashion to repair the dorsal scapholunate ligament. The ligament opposed the dorsal aspect of the lunate quite nicely. I then came more ulnarly and I reduced the lunotriquetral joint. This was in similar fashion pinned with 2 traversing 0.045 K-wires. The 2 mini Mitek suture anchors were used to repair the dorsal lunotriquetral ligament and I pulled it back to the lunate. He did have an avulsion fracture of the triquetrum; however, I did not go looking for this as the joint was nicely aligned and pinned into place. I then placed a 0.045 wire through the scaphoid up into the capitate to assist in holding the scaphoid out of flexion and pronation. I checked the position of all the wires on mini C-arm. Everything was looking good. The very small radial styloid piece was excised as it was about the size of a typical radial styloidectomy piece and I didn't want this to develop into a painful nonunion. During the exposure after I had opened up the extensor retinaculum, I had opened up the fourth dorsal compartment through the septum between the third and fourth dorsal compartments and then I identified the posterior interosseous nerve. I went ahead and dissected out free and a 2 cm segment of the nerve was excised to aid in postoperative pain and to minimize the chances of chronic pain. This was handed off as a specimen. The posterior interosseous artery was also cauterized. After the joints were reduced and pinned into place and the dorsal ligaments repaired, I went ahead and irrigated out the wound. The dorsal capsule was closed with 4-0 Vicryl sutures. The extensor retinaculum was closed with 4-0 Ethibond suture leaving the EPL tendon transposed. The skin was closed with 4- 0 nylon suture. The area was infiltrated with 0.25% plain Marcaine. The pins were clipped below the skin to the maximum depth possible. The wounds were dressed with Xeroform, 4x4, sterile Webril, and then a thumb spica splint was applied. Tourniquet was deflated and the hand pinked up immediately. Total tourniquet time was 143 minutes. He was then woken up and taken to the recovery room in stable condition. [id number]/CPS #: [id number] [facility]OSPITALAnanya
--- NOTE | 2017-08-22 14:50 | DS ---
DISCHARGE SUMMARY: DATE OF ADMISSION: 07/26/17 DATE OF DISCHARGE: 07/28/17 PROVIDER: Dr. Graham.* (DICTATED BY ANA MARIA CORREIA) CHIEF COMPLAINT: Left wrist perilunate dislocation. DISCHARGE DIAGNOSES: Status post left transradial styloid perilunate fracture repair with scapholunate and lunotriquetral ligament repairs and pinning. CONSULTATION: Physical Therapy. BRIEF HISTORY: Mr. Alcaraz is a very pleasant 46-year-old gentleman, who slipped at home and fell on his wrist and he was seen by Dr. Nguyen in [place]. Some x-rays were obtained and the patient was sent to [facility] on 07/26/17. The initial injury happened on 07/25/17. He was attempted to be relocated in the emergency room; however, underwent surgical fixation on 07/27/[address] Graham having repair of the left wrist perilunate fracture dislocation with scapholunate and lunotriquetral ligament repairs and pinning. During postoperative course, the patient recovered on the surgical short-stay unit. Pain was controlled postoperatively with p.o. pain medications. He was restarted on a regular diet. He had no questions or concerns with regard to the procedure. By postoperative day 1, he was orthopedically and medically stable for discharge to go home. PHYSICAL EXAMINATION: General: Well-appearing, in no acute distress. Alert and oriented. Vital Signs: Temperature 97.9, pulse 79, respirations 18, blood pressure 137/73, pulse oxygenation 96% on room air. Examination of the left upper extremity shows the splint was intact with no drainage. Sensation intact to light touch on left finger. Cap refill less than 2 seconds. No edema noted on the left fingers. DISCHARGE MEDICATIONS: 1. Colace 100 mg p.o. b.i.d. 2. Tylenol 325 mg p.o. q.6 hours p.r.n. for pain. 3. Oxycodone/acetaminophen 5/325 one to two tablets every 4 to 6 hours as needed for pain, not to exceed more than 4000 mg of Tylenol in 24-hour period. CONDITION ON DISCHARGE: Stable. DISCHARGE INSTRUCTIONS: The patient was educated to leave the splint in place until he followed up with Dr. Graham within approximately 7 to 10 days. He will follow up with his primary care physician within 7 to 10 days for blood pressure check as he had several readings of increased blood pressure during his hospital stay. He will go to the ER with complaint of short of breath, chest pain, or cold or numb fingertips. This was reviewed with his , they had no further questions; however, will follow up with Dr. Graham if any do arise. ANA MARIA CORREIA [id number]/[facility] #: [id number] [place]
== END 2017-07-28 11:00 | disposition home or self-care (01) ==
LOC: ED 12:27 → SSU 20:11
PROVIDERS: ADMIT Orthopaedic Surgery; ATTEND Orthopaedic Surgery Hand Surgery
DX: S62.122A Displaced fracture of lunate [semilunar], left wrist, initial encounter for closed fracture (principal); S63.512A Sprain of carpal joint of left wrist, initial encounter; W01.0XXA Fall on same level from slipping, tripping and stumbling without subsequent striking against object, initial encounter; Y92.008 Other place in unspecified non-institutional (private) residence as the place of occurrence of the external cause; I10 Essential (primary) hypertension
CPT/HCPCS: 36415; 76000; 80048; 85027; 85610; 88304; 93005; 96374; 96375; 99283; A9270-GY; C1713; G0378; J0360; J0690; J1100; J1170; J1885; J2250; J2405; J2704; J3010; J3490

== ENCOUNTER 2017-10-12 09:54 | Day surgery (SDC) | payer OTHER ==
[~2017-10-12 09:54] MED LIST: Buffered Lidocaine 0.9% SYRIN* 5 ML/SYR SYRINGE INTRADERM ONE; Dexamethasone IV* 4 MG/ML 1 ML (4 MG) IV SLOW PU ONE; Famotidine IV* 10 MG/ML 2 ML (20 mg) IV ONE
[2017-10-12] MEDS ORDERED: Dexamethasone IV* 4 MG/ML 1 ML (4 MG) ONE (10:07)
[2017-10-12] MEDS ORDERED: Famotidine IV* 10 MG/ML 2 ML (20 mg) ONE (10:07)
[2017-10-12] MEDS ORDERED: fentaNYL* 50 MCG/ML 2 ML VIAL (100 MCG VIAL) ONE (11:02)
[2017-10-12] MEDS ORDERED: Midazolam* 1 MG/ML 2 ML VIAL (2 MG) ONE (11:02)
[2017-10-12] MEDS ORDERED: Bupivacaine 0.25% SDV* 30 ML ONE (12:29)
[2017-10-12] MEDS ORDERED: Propofol* 10 MG/ML 20 ML BTL IV PUSH ONE ×2 (12:37→13:03)
[2017-10-12 14:01] VITALS: BP 148/101
--- NOTE | 2017-10-13 15:26 | RAD ---
INDICATION: Left wrist, history of previous wrist trauma COMPARISONS: September 19, 2017, July 26, 2017 TECHNIQUE: Fluoroscopy was provided for a surgical procedure. Total fluoroscopy time is: 9 seconds FINDINGS: Spot images demonstrate post surgical change to the lunate bone. IMPRESSION: FLUOROSCOPY WAS PROVIDED FOR A SURGICAL PROCEDURE CPT II Codes: 6045F
--- NOTE | 2017-10-23 23:22 | OP ---
DATE OF OPERATION: 10/12/17 - [facility] DATE OF : 74 SURGEON: Shaw Graham MD CLASSROOM COORDINATOR: ANA MARIA Ybarra ANESTHESIOLOGIST: Jeremy Garza MD ANESTHESIA: Local MAC. PRE-OP DIAGNOSIS: Retained deep buried pins, status post repair of perilunate dislocation 3 months ago. POST-OP DIAGNOSIS: Retained deep buried pins, status post repair of perilunate dislocation 3 months ago. OPERATIVE PROCEDURE: Left wrist removal of buried pins. INDICATION: Kieran had a perilunate dislocation. This was treated with repair of the ligament plus pinning of the scapholunate, lunate triquetrum, and scaphocapitate joints. He has been immobilized for 3 months. It was time for the pins to come out. ESTIMATED BLOOD LOSS: 1 mL. COMPLICATIONS: None. FINDINGS: As expected. DESCRIPTION OF PROCEDURE: Kieran was seen in the preoperative holding area. The correct side, site, and procedure were identified. We came back to the operating room. The arm was prepped and draped in the usual fashion. A time- out was performed. I exsanguinating the arm with the Esmarch and the tourniquet was inflated to 250 mmHg. I first made a 1 cm incision over the ulnar aspect of the wrist. The tips of the pins were bluntly dissected out with the tenotomy scissors. I removed one and then the other pin with the needle buggy driver in standard fashion. The wound was then irrigated out, the skin was closed. I then came radially and made a 1 cm incision over the 2 more proximal radial pins. Dissection was again bluntly carried down to the pins. The pins were removed with the needle buggy driver. I then came proximal and I made a stab incision. I then was able to extend my incision just a little bit longer. The scaphocapitate pin was dissected free and removed. At this point, I used the fluoroscopy machine to verify that all the pins were removed and nothing had been retained, everything was looking good. I irrigated out the wound. The skin was closed. Marcaine was infiltrated prior to making the incisions. He was then woken up and taken to the recovery room in stable condition. [id number]/[facility] #: [id number] [facility]ENTERAnanya
== END 2017-10-12 14:02 | disposition home or self-care (01) ==
LOC: OREAST 09:54
PROVIDERS: ATTEND Orthopaedic Surgery Hand Surgery
DX: S63.03 Subluxation and dislocation of midcarpal joint (principal); T84.220A Displacement of internal fixation device of bones of hand and fingers, initial encounter; Y83.1 Surgical operation with implant of artificial internal device as the cause of abnormal reaction of the patient, or of later complication, without mention of misadventure at the time of the procedure; I10 Essential (primary) hypertension; Z68.41 Body mass index [BMI] 40.0-44.9, adult
CPT/HCPCS: 76000; 88300; J1100; J2250; J2704; J3010